=== PATIENT | female | born 1995 | race Caucasian/White ===

== ENCOUNTER 2023-10-10 18:42 | Emergency (ER) | payer OTHER ==
[~2023-10-10] VITALS: Ht 152.4 cm; Wt 78.5 kg
== END 2023-10-10 21:09 | disposition left against medical advice (07) ==
LOC: ER 18:43
DX: K62.5 Hemorrhage of anus and rectum (principal); R53.81 Other malaise

== ENCOUNTER 2025-01-19 13:10 | Emergency (ER) | payer OTHER ==
[~2025-01-19] VITALS: Ht 157.5 cm; Wt 79.8 kg
[2025-01-19] MEDS ORDERED: 0.9 % SODIUM CHLORIDE 1,000 ML IV STA (13:40)
[2025-01-19] MEDS ORDERED: ONDANSETRON HCL 2 MG/ML VIAL IV STA (13:40)
[2025-01-19] MEDS ORDERED: FAMOTIDINE/PF 20 MG/2 ML VIAL ONE (14:04)
[2025-01-19] MEDS ORDERED: ONDANSETRON HCL 2 MG/ML VIAL ONE (14:04)
[2025-01-19 14:32] LABS: HEMATOCRIT 42.5 % (36.0-45.00); HEMOGLOBIN 14.3 g/dL (12.0-15.00); MEAN CELL VOLUME 89.5 fL (80.00-100.00); MEAN CORPUSCULAR HEMOGLOBIN 30.1 pg (27.00-32.0); MEAN CORPUSCULAR HGB CONC 33.6 g/dl (32.0-36.0); PLATELET COUNT 215 K/uL (150-450); RED BLOOD COUNT 4.74 M/uL (4.00-6.00); RED CELL DISTRIBUTION WIDTH 13.6 % (11.5-14.5)
[2025-01-19 14:58] LABS: CALCIUM 9.1 mg/dL (8.5-10.1); CREATININE SERUM 0.56 mg/dL (0.55-1.02); GFR 127.11; POTASSIUM 3.86 mEq/L (3.5-5.1)
[2025-01-19 15:42] LABS: URINE APPEARANCE Cloudy; URINE BILIRRUBIN Small (NEGATIVE); URINE BLOOD Negative; URINE COLOR Dark Yellow; URINE GLUCOSE Negative (NEGATIVE); URINE LEUKOCYTE Small; URINE NITRATE Negative; URINE PROTEIN 30 (NEGATIVE)
[2025-01-19 15:46] LABS: URINE RBC 14.5 uL (0.0-20.8); URINE WBC 64.4 uL (0.0-23.2)
[2025-01-19 16:05] LABS: URINE BACTERIA > 9821.5 uL (0.0-1933); URINE CAST 0.73 uL (0.0-1.40); URINE EPITHELIAL CELLS > 201.7 uL (0.0-38.8); URINE KETONE 80 (NEGATIVE); URINE MUCUS MODERATE
[2025-01-19] MEDS ORDERED: PANTOPRAZOLE SODIUM 40 MG/VIAL VIAL IV PUSH ONE (16:15)
[2025-01-19] MEDS ORDERED: PROMETHAZINE HCL 50 MG/ML AMPUL IM ONE ×2 (16:15→16:23)
[2025-01-19 20:43] LABS: AMYLASE 77 U/L (25-115); LIPASE 38 U/L (13-75)
[2025-01-19 20:44] LABS: HCG QUANTITATIVE 80904 mUI/mL (1-3)
[2025-01-20] MEDS ORDERED: FAMOTIDINE/PF 20 MG/2 ML VIAL ONE (02:42)
[2025-01-20] MEDS ORDERED: FAMOTIDINE/PF 20 MG/2 ML VIAL IV PUSH STA (02:42)
[2025-01-20] MEDS ORDERED: 0.9 % SODIUM CHLORIDE 1,000 ML IV ONE (02:45)
[2025-01-20] MEDS ORDERED: CEFTRIAXONE SODIUM 1,000 MG VIAL IV STA (03:40)
[2025-01-20] MEDS ORDERED: CEFTRIAXONE SODIUM 1,000 MG VIAL ONE (04:17)
== END 2025-01-20 12:04 | disposition home or self-care (01) ==
LOC: ER 13:10
PROVIDERS: Emergency Medicine; General Practice
DX: O21.9 Vomiting of pregnancy, unspecified (principal); Z3A.08 8 weeks gestation of pregnancy; R10.11 Right upper quadrant pain

== ENCOUNTER → 2025-02-09 | Emergency (ER) | payer OTHER ==
[~2025-02-09] VITALS: Ht 157.5 cm; Wt 79.4 kg
[~2025-02-09] MED LIST: 0.9 % SODIUM CHLORIDE 1,000 ML IV STA; ONDANSETRON HCL 2 MG/ML VIAL IV STA; ONDANSETRON HCL 2 MG/ML VIAL ONE; PEPCID40 MG PO; ZOFRAN8 MG PO
[2025-02-09 23:59] LABS: BASO % 0.5 % (0.1-1.2); EOS # 0.19 (0.04-0.54); EOS % 2.5 % (0.7-7.0); HEMATOCRIT 39.3 % (34.1-44.9); HEMOGLOBIN 13.6 g/dL (11.2-15.7); LYMPH # 2.19 (1.18-3.74); LYMPH % 29.1 % (19.3-53.1); MEAN CORPUSCULAR HEMOGLOBIN 29.8 pg (25.6-32.2); MONO # 0.51 (0.24-0.82); MONO % 6.8 % (4.7-12.5); NEUT # 4.59 (1.56-6.13); PLATELET COUNT 237 K/uL (163-369); RED BLOOD COUNT 4.56 M/uL (3.93-5.22); RED CELL DISTRIBUTION WIDTH 12.7 % (11.6-14.4)
[2025-02-10 01:11] LABS: ALBUMIN 3.6 gm/dL (3.4-5.0); BILIRUBIN TOTAL 0.46 mg/dL (0.3-1.2); CREATININE SERUM 0.41 mg/dL (0.55-1.02); GFR 182.15; GLOBULINA 4.3 G/DL (2.4-3.5); POTASSIUM 3.6 mEq/L (3.5-5.1); TOTAL PROTEIN 7.9 gm/dL (6.4-8.2)
== END | disposition home or self-care (01) ==
LOC: ER 22:11
PROVIDERS: Emergency Medicine
DX: Z34.90 Encounter for supervision of normal pregnancy, unspecified, unspecified trimester (principal); Z33.1 Pregnant state, incidental; Z3A.14 14 weeks gestation of pregnancy; R11.10 Vomiting, unspecified

== ENCOUNTER 2025-02-12 23:14 | Emergency (ER) | payer OTHER ==
[~2025-02-12] VITALS: Ht 157.5 cm; Wt 77.1 kg
[~2025-02-12 23:14] MED LIST changes: -0.9 % SODIUM CHLORIDE 1,000 ML IV STA; -ONDANSETRON HCL 2 MG/ML VIAL IV STA; -ONDANSETRON HCL 2 MG/ML VIAL ONE
[2025-02-13] MEDS ORDERED: PROMETHAZINE HCL 50 MG/ML AMPUL IM STA (00:15)
[2025-02-13] MEDS ORDERED: FAMOTIDINE/PF 20 MG/2 ML VIAL IV PUSH STA (00:15)
[2025-02-13] MEDS ORDERED: PROMETHAZINE HCL 50 MG/ML AMPUL IM ONE (01:07)
[2025-02-13] MEDS ORDERED: FAMOTIDINE/PF 20 MG/2 ML VIAL ONE (01:08)
[2025-02-13 01:42] LABS: BASO % 0.4 % (0.1-1.2); EOS % 1.5 % (0.7-7.0); HEMATOCRIT 39.7 % (34.1-44.9); HEMOGLOBIN 13.6 g/dL (11.2-15.7); LYMPH # 1.88 (1.18-3.74); LYMPH % 27.6 % (19.3-53.1); MEAN CORPUSCULAR HEMOGLOBIN 29.4 pg (25.6-32.2); MONO # 0.57 (0.24-0.82); MONO % 8.4 % (4.7-12.5); NEUT # 4.21 (1.56-6.13); NEUT % 61.8 % (34.0-71.1); PLATELET COUNT 232 K/uL (163-369); RED BLOOD COUNT 4.62 M/uL (3.93-5.22); RED CELL DISTRIBUTION WIDTH 12.6 % (11.6-14.4)
[2025-02-13] MEDS ORDERED: 0.9 % SODIUM CHLORIDE 1,000 ML IV ONE (02:00)
[2025-02-13 02:31] LABS: ALBUMIN 3.6 gm/dL (3.4-5.0); BILIRUBIN TOTAL 0.54 mg/dL (0.3-1.2); BILIRUBIN,CONJUGATED 0.14 mg/dL (0.0-0.2); BILIRUBIN,UNCONJUGATED 0.4 mg/dL (0.0-0.6); CALCIUM 9.1 mg/dL (8.5-10.1); CREATININE SERUM 0.37 mg/dL (0.55-1.02); GFR 205.06; GLOBULINA 3.8 G/DL (2.4-3.5); POTASSIUM 3.27 mEq/L (3.5-5.1); TOTAL PROTEIN 7.4 gm/dL (6.4-8.2)
[2025-02-13 02:41] LABS: URINE APPEARANCE Cloudy; URINE BILIRRUBIN Small (NEGATIVE); URINE BLOOD Negative; URINE COLOR Dark Yellow; URINE GLUCOSE Negative (NEGATIVE); URINE LEUKOCYTE Trace; URINE NITRATE Negative; URINE PROTEIN 30 (NEGATIVE)
[2025-02-13 02:46] LABS: URINE BACTERIA 6324.2 uL (0.0-1933); URINE EPITHELIAL CELLS 104.4 uL (0.0-38.8); URINE RBC 10.4 uL (0.0-20.8); URINE WBC 27.8 uL (0.0-23.2)
[2025-02-13 03:06] LABS: URINE CAST 0.73 uL (0.0-1.40); URINE KETONE >=160 (NEGATIVE); URINE MUCUS MODERATE
[2025-02-13] MEDS ORDERED: METOCLOPRAMIDE HCL 5 MG/ML VIAL ONE ×2 (11:37→21:21)
[2025-02-13] MEDS ORDERED: METOCLOPRAMIDE HCL 10 MG in DEXTROSE 5 % IN WATER 50 ML IV ONE ×2 (11:45→21:30)
[2025-02-13] MEDS ORDERED: SUCRALFATE 1 G TABLET PO ONE (14:15)
[2025-02-13] MEDS ORDERED: PROMETHAZINE HCL 25 MG/ML AMPUL IV ONE (15:00)
[2025-02-13] MEDS ORDERED: PROMETHAZINE HCL 25 MG/ML AMPUL ONE (15:10)
[2025-02-13] MEDS ORDERED: ONDANSETRON HCL 2 MG/ML VIAL ONE (16:59)
[2025-02-13] MEDS ORDERED: ONDANSETRON HCL 2 MG/ML VIAL IV ONE (17:00)
[2025-02-13 21:39] LABS: BASO % 0.4 % (0.1-1.2); EOS # 0.13 (0.04-0.54); EOS % 1.9 % (0.7-7.0); HEMATOCRIT 37.1 % (34.1-44.9); HEMOGLOBIN 12.6 g/dL (11.2-15.7); LYMPH # 1.88 (1.18-3.74); LYMPH % 26.8 % (19.3-53.1); MEAN CORPUSCULAR HEMOGLOBIN 29.6 pg (25.6-32.2); MONO # 0.51 (0.24-0.82); MONO % 7.3 % (4.7-12.5); NEUT # 4.45 (1.56-6.13); NEUT % 63.3 % (34.0-71.1); PLATELET COUNT 197 K/uL (163-369); RED BLOOD COUNT 4.25 M/uL (3.93-5.22); RED CELL DISTRIBUTION WIDTH 12.7 % (11.6-14.4)
[2025-02-13 22:03] LABS: CALCIUM 8.5 mg/dL (8.5-10.1); CREATININE SERUM 0.36 mg/dL (0.55-1.02); GFR 211.65; POTASSIUM 3.42 mEq/L (3.5-5.1)
[2025-02-13] MEDS ORDERED: DICLEGIS DR 101 EACH PO (22:41)
== END 2025-02-13 22:55 | disposition home or self-care (01) ==
LOC: ER 23:14
PROVIDERS: General Practice
DX: O21.0 Mild hyperemesis gravidarum (principal); Z3A.12 12 weeks gestation of pregnancy